=== PATIENT | male | born 1965 | race Caucasian/White ===

== ENCOUNTER 2019-03-31 06:49 | Emergency (ER) | payer BC, OTHER ==
[~2019-03-31] VITALS: Ht 175.3 cm; Wt 79.4 kg
[~2019-03-31 06:49] MED LIST: CALC600T12 PO; FENO145T45 PO; METAMUCIL1 PKT PO; MULT1CAP34 PO; OMEP20CA15 PO; ROSU5TAB PO; VALA500T PO; VIT D; ZOLP5TAB2 PO
[2019-03-31] MEDS: IV NS 0.9% 500 ML BAG IV ONE (07:13)
[2019-03-31 07:15] LABS: BASOPHILS # (AUTO) 0.1 /CMM (0.0-0.2); EOSINOPHILS % (AUTO) 0.9 % (0.0-6.0); HEMATOCRIT 45 % (39-51); LYMPHOCYTES # (AUTO) 1.8 /CMM (0.8-4.8); LYMPHOCYTES % (AUTO) 30.6 % (20.0-44.0); MEAN CORPUSCULAR HGB CONC 35 g/dl (31.0-36.0); MEAN CORPUSCULAR VOLUME 94 fL (80-96); MONOCYTES # (AUTO) 0.7 /CMM (0.1-1.30); MONOCYTES % (AUTO) 12.1 % (2.0-12.0); NEUTROPHILS # (AUTO) 3.2 /CMM (1.8-8.9); NEUTROPHILS % (AUTO) 55.4 % (43.0-81.0); PLATELET COUNT (AUTO) 193 /CMM (150-450); RED BLOOD CELL COUNT(AUTO) 4.82 MIL/uL (4.5-6.0); WHITE BLOOD COUNT (AUTO) 5.7 K/uL (4.3-11.0)
--- NOTE | 2019-03-31 07:24 | NUR ---
PATIENT CAME TO ER BIB RA TO BED 8 C/O NUMBNESS AND WEAKNESS. PT STATES THAT YESTERDAY NIGHT HE HAD SUSHI AND FELT THAT EVERYTHING WAS BLAND AND TASTELESS. PATIENT STATES THIS MORNING WHEN HE WAS IN THE SHOWER, HE FELT WEAK AND NUMBNESS IN BOTH OF HIS UPPER EXTREMITIES. AAOX4. NO SOB. BREATHING EVENLY AND UNLABORED. CONNECTED TO MONITOR. AT BEDSIDE
[2019-03-31 07:28] LABS: CALCIUM, SERUM 7.2 mg/dL (8.5-10.1); CARBON DIOXIDE 15 mmol/L (21-32); CHLORIDE 96 mmol/L (98-107); CREATININE 1.4 mg/dL (0.6-1.3); GLUCOSE 149 mg/dL (74-106); POTASSIUM 3.4 mmol/L (3.5-5.1); SODIUM SERUM 132 mmol/L (136-145); UREA NITROGEN, BLOOD 21 mg/dL (7-18)
[2019-03-31 07:38] LABS: ALBUMIN 2.9 g/dL (3.4-5.0); ALKALINE PHOSPHATASE 140 U/L (46-116); BILIRUBIN,DIRECT 0.2 mg/dL (0.0-0.2); BILIRUBIN,TOTAL 1.3 mg/dL (0.2-1.0)
[2019-03-31 07:41] LABS: CHOLESTEROL 275 mg/dL (<200); HDL CHOLESTEROL 17 mg/dL (40-60); LDL 61 mg/dL (0-99)
--- NOTE | 2019-03-31 07:47 | NUR ---
PATIENT RECEIVED RESTING INSIDE ROOM, LYING ON BED. A/O X 4. NO ACUTE DISTRESS. CONNECTED TO MONITOR, AT BEDSIDE. WILL CONTINUE TO MONITOR
[2019-03-31 07:56] LABS: TRIGLYCERIDES 2866 mg/dL (30-150)
[2019-03-31] MEDS: IV NS 0.9% 1,000 ML BAG IV ONE (08:07)
[2019-03-31 08:17] LABS: ASPARTATE AMINOTRANSFERASE 272 U/L (15-37)
[2019-03-31 08:18] LABS: ALANINE AMINOTRANSFERASE 281 U/L (12-78); TOTAL PROTEIN, SERUM 6.3 g/dL (6.4-8.2)
[2019-03-31 10:05] LABS: CALCIUM, SERUM 7.3 mg/dL (8.5-10.1); CREATININE 1.1 mg/dL (0.6-1.3); POTASSIUM 3.4 mmol/L (3.5-5.1)
[2019-03-31 11:21] VITALS: BP 111/75
--- NOTE | 2019-03-31 11:21 | NUR ---
IV removed. Catheter intact and site benign. Pressure and 4x4 applied to site. No bleeding noted.Patient discharged to home in stable condition. Written and verbal after care instructions given. Written prescriptions provided. Patient verbalizes understanding of instruction.
== END 2019-03-31 11:22 | disposition home or self-care (01) ==
LOC: ER 06:50
DX: R55 Syncope and collapse (principal); R06.4 Hyperventilation; E86.0 Dehydration; E78.00 Pure hypercholesterolemia, unspecified; I10 Essential (primary) hypertension; M54.9 Dorsalgia, unspecified; G89.29 Other chronic pain; Z98.890 Other specified postprocedural states; Z79.899 Other long term (current) drug therapy
CPT/HCPCS: 36415; 70450; 71045; 80048 ×2; 80061; 80076; 84484; 85025; 85730; 93005; 96360; 99285; J7030; J7040

== ENCOUNTER 2021-10-04 00:17 | Inpatient (IN) | payer OTHER ==
[~2021-10-04] VITALS: Ht 175.3 cm; Wt 82.1 kg
[~2021-10-04 00:17] MED LIST changes: +CALC-1143 PO; -CALC600T12 PO
[2021-10-04] MEDS ORDERED: ASPIRIN 325 MG TABLET ONE (00:49)
[2021-10-04] MEDS ORDERED: NITROGLYCERIN 0.4 MG/TAB BOTTLE ONE (00:49)
[2021-10-04] MEDS ORDERED: NITROGLYCERIN 0.4 MG/TAB BOTTLE SL ONE (01:00)
[2021-10-04] MEDS ORDERED: ASPIRIN 325 MG TABLET PO ONE (01:00)
[2021-10-04 01:10] LABS: BASOPHILS % (AUTO) 0.6 % (0.0-2.0); HEMATOCRIT 43 % (39-51); HEMOGLOBIN 14.2 g/dL (13.5-17.5); LYMPHOCYTES # (AUTO) 2.2 K/uL (0.8-4.8); LYMPHOCYTES % (AUTO) 33.2 % (20.0-44.0); MEAN CORPUSCULAR HGB CONC 34 g/dl (31.0-36.0); MEAN CORPUSCULAR VOLUME 92 fL (80-96); MONOCYTES # (AUTO) 0.8 K/uL (0.1-1.30); NEUTROPHILS # (AUTO) 3.5 K/uL (1.8-8.9); NEUTROPHILS % (AUTO) 53.2 % (43.0-81.0); PLATELET COUNT (AUTO) 200 K/uL (150-450); RED BLOOD CELL COUNT(AUTO) 4.65 MIL/uL (4.5-6.0); WHITE BLOOD COUNT (AUTO) 6.6 K/uL (4.3-11.0)
[2021-10-04 01:26] LABS: CALCIUM, SERUM 8.7 mg/dL (8.5-10.1); CARBON DIOXIDE 28 mmol/L (21-32); CHLORIDE 102 mmol/L (98-107); CREATININE 1.2 mg/dL (0.6-1.3); GLUCOSE 100 mg/dL (74-106); POTASSIUM 3.8 mmol/L (3.5-5.1); SODIUM SERUM 139 mmol/L (136-145); UREA NITROGEN, BLOOD 19 mg/dL (7-18)
[2021-10-04] MEDS ORDERED: MAGNESIUM HYDROXIDE 30 ML UDC PO PRN (03:00)
[2021-10-04] MEDS ORDERED: MAG HYDROX/AL HYDROX/SIMETH 30 ML UDC PO PRN (03:00)
[2021-10-04] MEDS ORDERED: ACETAMINOPHEN 325 MG TABLET PO PRN (03:00)
[2021-10-04] MEDS ORDERED: HYDROCODONE/APAP 5/325MG TABLET PO PRN (03:00)
[2021-10-04] MEDS ORDERED: Z GUARD REMEDY 4 OZ OINT TP PRN (03:00)
[2021-10-04] MEDS ORDERED: TEMAZEPAM 15 MG CAPSULE PO PRN (03:00)
[2021-10-04] MEDS ORDERED: NITROGLYCERIN 0.4 MG/TAB BOTTLE SL PRN (03:00)
[2021-10-04] MEDS ORDERED: ONDANSETRON HCL/PF 4 MG/2 ML VIAL IVP PRN (03:00)
[2021-10-04] MEDS ORDERED: MORPHINE SULFATE INJ 2 MG/ML DISP.SYRIN IV PRN (03:00)
[2021-10-04 05:02] VITALS: BP 136/90
[2021-10-04] MEDS ORDERED: PANTOPRAZOLE 40 MG TABLET.DR PO SCH (07:30)
[2021-10-04] MEDS ORDERED: ASPIRIN 81 MG TAB.CHEW PO SCH (09:00)
[2021-10-04] MEDS ORDERED: VALACYCLOVIR HCL 500 MG TABLET PO SCH (10:00)
[2021-10-04] MEDS ORDERED: MULTIVITAMIN/LUTEIN/MINERALS 1 TAB PO SCH (10:00)
[2021-10-04] MEDS ORDERED: FENOFIBRATE NANOCRYS (145 MG) 145 MG TABLET PO SCH ×2 (10:00→10:45)
[2021-10-04] MEDS ORDERED: PSYLLIUM SEED 1 PKT PACKET PO SCH (10:00)
[2021-10-04] MEDS ORDERED: ZOLPIDEM TARTRATE 5 MG TABLET PO PRN (10:00)
[2021-10-04] MEDS ORDERED: OMEPRAZOLE 20 MG CAPSULE.DR PO SCH (10:00)
[2021-10-04] MEDS ORDERED: CALCIUM CARBONATE 500 MG TAB.CHEW PO SCH (11:00)
[2021-10-04] MEDS ORDERED: ATORVASTATIN 10 MG TABLET PO SCH (22:00)
== END 2021-10-04 05:30 | disposition left against medical advice (07) | DRG 311 ==
LOC: ER 00:21 → TELE 04:48
PROVIDERS: ADMIT Nurse Practitioner Acute Care; ATTEND Nurse Practitioner Acute Care
DX: I24.9 Acute ischemic heart disease, unspecified (principal); E78.5 Hyperlipidemia, unspecified; I10 Essential (primary) hypertension; I25.10 Atherosclerotic heart disease of native coronary artery without angina pectoris; Z20.822 Contact with and (suspected) exposure to COVID-19; R07.9 Chest pain, unspecified
CPT/HCPCS: 36415; 71045-TC; 80048-TC; 84484-TC; 85025-TC; C9803; G0378

== ENCOUNTER 2022-10-11 22:27 | Emergency (ER) | payer OTHER ==
[~2022-10-11] VITALS: Ht 175.3 cm; Wt 81.6 kg
[2022-10-11 23:21] VITALS: BP 131/79; TEMP 98.1; O2SAT 96
== END 2022-10-11 23:22 | disposition left against medical advice (07) ==
LOC: ER 22:31
DX: R00.2 Palpitations (principal); I10 Essential (primary) hypertension; E78.5 Hyperlipidemia, unspecified; G89.29 Other chronic pain